=== PATIENT | female | born 1985 | race Caucasian/White ===

== ENCOUNTER → 2018-07-16 11:56 | Outpatient (CLI) | payer OTHER, SELFPAY ==
[2018-07-19 18:24] LABS: Fecal Immunochemical Test NOT DETECTED
== END ==
PROVIDERS: PCP Family Medicine; Visit Provider Family Medicine
DX: K92.1 Melena (principal)
CPT/HCPCS: 82274

== ENCOUNTER → 2018-07-18 13:04 | Outpatient (CLI) | payer OTHER, SELFPAY ==
[2018-07-18 13:58] LABS: Add Manual Diff / Slide Review NO; Basophils Percent Auto 0.3 % (0-2); Eosinophils Percent Auto 0.2 % (2-4); Hematocrit 33.5 % (36-46); Hemoglobin 11.4 g/dL (12.0-16.0); Lymphocytes Percent Auto 18.5 % (25-40); Mean Corpuscular HGB Conc 34.1 % (30-36); Mean Corpuscular Hemoglobin 30.8 PG (26-34); Mean Corpuscular Volume 90.3 fL (80-100); Monocytes Percent Auto 7.8 % (3-14); Neutrophils Absolute Auto 4200 /uL (3000-5900); Neutrophils Percent Auto 73.2 % (50-75); Platelet Count 243 X10^3/uL (150-400); Red Blood Cell Count 3.71 X10^6/uL (4.0-5.2); Red Cell Distribution Width 13.9 % (11.6-14.8); White Blood Cell Count 5.8 X10^3/uL (4.5-11.0)
[2018-07-18 14:34] LABS: HEMOLYSIS < 15 (0-50); Iron 157 ug/dL (37-170)
[2018-07-18 14:45] LABS: Percent Iron Saturation 58 % (15-50); Total Iron Binding Capacity 269 ug/dL (265-497); Transferrin 229 mg/dL (206-381)
== END ==
PROVIDERS: PCP Family Medicine; Visit Provider Family Medicine
DX: D64.9 Anemia, unspecified (principal)
CPT/HCPCS: 36415; 83540; 83550; 85025

== ENCOUNTER → 2018-07-19 09:49 | Outpatient (CLI) | payer OTHER, SELFPAY ==
[2018-07-19 10:40] LABS: Occult Blood 1 Negative (Negative)
== END ==
PROVIDERS: PCP Family Medicine; Visit Provider Family Medicine
DX: K92.1 Melena (principal)
CPT/HCPCS: 82270; 86677

== ENCOUNTER → 2018-07-22 12:15 | Outpatient (CLI) | payer OTHER, SELFPAY ==
[2018-07-22 13:51] LABS: Vitamin B12 390 pg/mL (239-931)
== END ==
PROVIDERS: PCP Family Medicine; Visit Provider Family Medicine
DX: D64.9 Anemia, unspecified (principal)
CPT/HCPCS: 82607

== ENCOUNTER → 2018-08-11 14:00 | Outpatient (CLI) | payer OTHER, SELFPAY | PROVIDERS: PCP Family Medicine | DX: Z23 Encounter for immunization (principal) | CPT/HCPCS: 90471; 90686 ==

== ENCOUNTER → 2019-03-31 16:23 | Outpatient (CLI) | payer OTHER, SELFPAY ==
--- NOTE | 2019-03-31 16:26 | DI.US.S_ITS ---
PROCEDURE: US EXTREMITY NONVASC LOWER LT INDICATIONS: Lump behind L knee TECHNIQUE: Real-time scanning was performed of the left popliteal fossa and posterior aspect of the left eye, with image documentation. COMPARISON: None. FINDINGS: There is no discrete mass in the area palpated by the patient. Soft tissue edema is noted in this region. IMPRESSION: Soft tissue edema without underlying palpable mass is palpated by the patient. Dictated by: Desiree Ng M.D. on 03/31/2019 at 17:42 Approved by: Desiree Ng M.D. on 03/31/2019 at 17:42
--- NOTE | 2019-03-31 16:26 | DI.RAD.S_ITS ---
PROCEDURE: XR KNEE LT 3V INDICATIONS: Left knee pain TECHNIQUE: 3 views of the knee were acquired. COMPARISON: None. FINDINGS: Bones: No fractures or dislocations. No suspicious bony lesions. Soft tissues: No joint effusion. No suspicious soft tissue calcifications. IMPRESSION: No definite radiographic abnormality. If pain persists, consider cross sectional imaging such as CT or MRI for further assessment. If there is clinical concern for Rodriguez's cyst or soft tissue mass, consider ultrasound. Dictated by: Devonte CHARLES Interpreted: Stephanie Hammond MD on 03/31/2019 at 16:54 Approved by: Stephanie Hammond M.D. on 04/03/2019 at 17:34
== END ==
PROVIDERS: PCP Family Medicine; Visit Provider Registered Nurse
DX: M25.562 Pain in left knee (principal); R22.42 Localized swelling, mass and lump, left lower limb
CPT/HCPCS: 73562; 76882

== ENCOUNTER → 2019-08-29 10:14 | Outpatient (CLI) | payer OTHER, SELFPAY | PROVIDERS: PCP Family Medicine | DX: Z23 Encounter for immunization (principal) | CPT/HCPCS: 90471; 90686 ==

== ENCOUNTER 2020-01-20 07:44 | Emergency (ER) | payer OTHER, SELFPAY ==
--- NOTE | 2020-01-20 07:56 | DI.RAD.S_ITS ---
PROCEDURE: XR HIP W PEL IF DONE RT 2V INDICATIONS: fall with hip pain TECHNIQUE: 2 views of the hip were acquired. COMPARISON: None. FINDINGS: Bones: No displaced fractures or dislocations. No suspicious bony lesions. The visualized pelvic ring appears intact. Soft tissues: No suspicious soft tissue calcifications or masses. An intrauterine contraceptive device is identified within the pelvis. Imaged bowel loops are nondilated. IMPRESSION: No acute fractures of the right hip are evident. Dictated by: Mark Wood M.D. on 01/20/2020 at 7:37 Approved by: Mark Wood M.D. on 01/20/2020 at 7:38
--- NOTE | 2020-01-20 07:56 | DI.RAD.S_ITS ---
PROCEDURE: XR KNEE RT 3V INDICATIONS: fall with pain TECHNIQUE: 3 views of the knee were acquired. COMPARISON: [facility], CR, XR KNEE LT 3V, 03/31/2019, 16:41. FINDINGS: Bones: No fractures or dislocations. No suspicious bony lesions. Soft tissues: There is a small joint effusion. No suspicious soft tissue calcifications. Prepatellar soft tissue edema is present. No radiopaque foreign bodies are evident. IMPRESSION: 1. No acute right knee fractures. 2. Probable prepatellar soft tissue injury. Dictated by: Mark Wood M.D. on 01/20/2020 at 7:39 Approved by: Mark Wood M.D. on 01/20/2020 at 7:41
[2020-01-20 08:07] VITALS: BP 143/92; PULSE 70; RESP 14; TEMP 36.6; O2SAT 97
[2020-01-20] MEDS: LIDOCAINE 1% W/EPI 1 ML SUBCUT (08:30)
[2020-01-20] MEDS: TET,DIPH,PERTUSS(ACELL),VAC/PF 0.5 ML SYRINGE IM (08:33)
--- NOTE | 2020-01-20 08:36 | ED_ITS ---
HPI - Extremity Injury (Lower) General Chief Complaint: Extremity Injury, Lower Stated Complaint: suspected dislocated hip and hurt knee Time Seen by Provider: 01/20/20 07:45 Source: patient and family Mode of arrival: Ambulatory Limitations: no limitations History of Present Illness HPI Narrative: 34-year-old female nonsmoker with noncontributory medical history presents with a chief complaint of right hip and right knee pain after a fall last night. She states she was rollerblading when she tried to jump and tripped and fell forward, landing directly on her knee. In the immediate aftermath she had significant pain in her right hip and had difficulty with ambulation. She suffered a laceration on her right kneecap which she washed out. She is unsure when her tetanus is. Her pain is worse when she moves and improves with rest MD complaint: hip injury and knee injury Onset (ago): hour(s) Type of Injury: blunt Place: street/outdoors Severity: moderate Relieving factors: rest Exacerbating factors: weight bearing and movement Context: fall and direct blow Other symptoms: none Related Data Home Medications Medication Instructions Recorded Confirmed multivitamin [Multiple Vitamins] 1 tab PO QDAY #0 07/23/17 09/27/19 cholecalciferol (vitamin D3) 1,000 unit PO QDAY #0 10/30/17 09/27/19 [Vitamin D3] Previous Rx's Medication Instructions Recorded propranolol 10 mg tablet 10 mg PO TID PRN #90 tab 09/27/19 cephalexin [Keflex] 500 mg PO QID 7 Days #28 cap 01/20/20 Allergies Allergy/AdvReac Type Severity Reaction Status Date / Time No Known Allergies Allergy Uncoded 09/27/19 11:27 Review of Systems Constitutional Constitutional: Denies chills, Denies fatigue, Denies fever(s), Denies frequent falls, Denies lethargy and Denies weakness Eyes Eyes: Denies change in vision, Denies eye discharge, Denies irritation and Denies loss of vision ENT Ears, Nose, Mouth, and Throat: Denies change in voice, Denies dizziness, Denies neck pain, Denies sore throat and Denies throat swelling Cardiovascular Cardiovascular: Denies chest pain, Denies irregular heart rhythm, Denies lightheadedness, Denies palpitations, Denies dyspnea, Denies dyspnea on exertion and Denies orthopnea Respiratory Respiratory: Denies cough, Denies dyspnea, Denies dyspnea on exertion and Denies wheezing Gastrointestinal Gastrointestinal: Denies abdominal pain, Denies change in bowel habits, Denies diarrhea, Denies nausea and Denies vomiting Genitourinary Genitourinary: Denies hematuria, Denies flank pain, Denies urinary incontinence and Denies urinary urgency Musculoskeletal Musculoskeletal: Denies back pain, Reports limited range of motion, Denies muscle weakness, Denies neck pain, Denies numbness and Denies tingling Integumentary/Breasts Skin/Breast: Denies pruritus, Denies erythema, Denies rash and Reports wounds Neurologic Neurologic: Denies behavioral changes, Denies confusion, Denies dizziness, Denies frequent falls, Denies loss of vision, Denies numbness, Denies tingling and Denies weakness Psychiatric Psychiatric: Denies anxiety, Denies behavioral changes, Denies confusion, Denies depression, Denies homicidal ideation and Denies suicidal ideation Endocrine Endocrine: Denies fatigue, Denies flushing and Denies palpitations Hematologic/Lymphatic Hematologic/Lymphatic: Denies easy bruising Allergic/Immunologic Allergic/Immunologic: Denies urticaria, Denies throat swelling and Denies wheezing Patient History Medical History Ankle pain (Chronic 2008) Anxiety and depression (Acute) Brachial artery occlusion, 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 Grandmother Diabetes mellitus Sister Mental health problem Depression Anxiety Social History Smoking Status: Never smoker alcohol intake: current Smoking Status: Never smoker Substance Use Type: does not use Exam Narrative Exam Narrative: GENERAL: [34] year old patient appears stated age. Well- nourished, well-developed patient, in mild distress. GCS 15 HEAD: Atraumatic. Normocephalic. EYES: Pupils equal round and reactive. Extraocular motions intact. No scleral icterus. No injection or drainage. ENT: Nose without bleeding, purulent drainage. Throat without erythema, tonsillar hypertrophy or exudate. Airway patent. NECK: Trachea midline. Non tender CARDIOVASCULAR: Regular rate and rhythm without murmurs, gallops, or rubs. RESPIRATORY: Clear to auscultation. Breath sounds equal bilaterally. No wheezes, rales, or rhonchi. GASTROINTESTINAL: Abdomen soft, non-tender, nondistended. EXTREMITIES: Full but painful range of motion at right hip and knee. No shortening or internal rotation. No obvious effusion, crepitance or deformity. 3 cm deep full-thickness laceration across patella with minimal bleeding and irregular borders BACK: Nontender without deformity or crepitance. No flank tenderness. NEURO: AOx3. SKIN: No rash or erythema of visible areas Initial Vital Signs Initial Vital Signs: Vital Signs Temperature 97.8 F 01/20/20 08:07 Pulse Rate 70 01/20/20 08:07 Respiratory Rate 14 01/20/20 08:07 Blood Pressure 143/92 H 01/20/20 08:07 Pulse Oximetry 97 01/20/20 08:07 Procedures Laceration Repair Laceration 1: Side (If applicable): right Size (cm): 3 Description: irregular Depth: involves muscle layer Local Anesthetic: lidocaine 1% and with epi Amount of anesthesia used (mL): 4 Pre-repair: wound explored and irrigated extensively Skin layer closed with: nylon Size (cm): 4-0 Number of sutures: 4 Technique: simple, interrupted Subcutaneous layer closed with: vicryl Size: 4-0 Number of sutures: 1 Course Orders Ordered: Discontinued Medications Diphtheria/Tetanus/Acell Pertussis (Adacel) 0.5 ml IM .ONCE ONE Stop: 01/20/20 08:30 Last Admin: 01/20/20 08:33 Dose: 0.5 ml Documented by: MEISENRamone Lidocaine/Epinephrine (Xylocaine 1% W/Epi) 1 ml SUBCUT NOW ONE Stop: 01/20/20 07:57 Last Admin: 01/20/20 08:30 Dose: 1 ml Documented by: MEISENB Vital Signs Vital signs: Vital Signs - 8 hr 01/20/20 08:07 Temperature 97.8 F Pulse Rate 70 Respiratory Rate 14 Blood Pressure 143/92 H Pulse Oximetry 97 MDM - Extremity Injury (Lower) Imaging Data Extremity x-ray #1: Radiologist's Impression: [address] [address] XRay Report Signed Patient: Yecenia Arcos EMR#: [id number] : 1985Acct:[id number] Age/Sex: 34 / FDate of Service: 01/20/20 Loc: ED Accession Number: [id number] Procedure: XR hip w pel if done RT 2V Ordering Provider: Ishmael Rivera D.O. PROCEDURE: XR HIP W PEL IF DONE RT 2V INDICATIONS: fall with hip pain TECHNIQUE: 2 views of the hip were acquired. COMPARISON: None. FINDINGS: Bones: No displaced fractures or dislocations. No suspicious bony lesions. The visualized pelvic ring appears intact. Soft tissues: No suspicious soft tissue calcifications or masses. An intrauterine contraceptive device is identified within the pelvis. Imaged bowel loops are nondilated. IMPRESSION: No acute fractures of the right hip are evident. Dictated by: Mark Wood M.D. on 01/20/2020 at 7:37 Approved by: Mark Wood M.D. on 01/20/2020 at 7:[address] [address] XRay Report Signed Patient: Yecenia Arcos EMR#: [id number] : 1985Acct:[id number] Age/Sex: 34 / FDate of Service: 01/20/20 Loc: ED Accession Number: [id number] Procedure: XR knee RT 3V Ordering Provider: Ishmael Rivera D.O. PROCEDURE: XR KNEE RT 3V INDICATIONS: fall with pain TECHNIQUE: 3 views of the knee were acquired. [facility], 16:41. FINDINGS: Bones: No fractures or dislocations. No suspicious bony lesions. Soft tissues: There is a small joint effusion. No suspicious soft tissue calcifications. Prepatellar soft tissue edema is present. No radiopaque foreign bodies are evident. IMPRESSION: 1. No acute right knee fractures. 2. Probable prepatellar soft tissue injury. Dictated by: Mark Wood M.D. on 01/20/2020 at 7:39 Approved by: Mark Wood M.D. on 01/20/2020 at 7:41 Discharge Plan Departure Patient Disposition: Home Clinical Impression: Knee laceration Qualifiers: Encounter type: initial encounter Laterality: right Qualified Code(s): S81.011A - Laceration without foreign body, right knee, initial encounter Knee sprain Qualifiers: Encounter type: initial encounter Involved ligament of knee: unspecified ligament Laterality: right Qualified Code(s): S83.91XA - Sprain of unspecified site of right knee, initial encounter Hip sprain Qualifiers: Encounter type: initial encounter Laterality: right Qualified Code(s): S73.101A - Unspecified sprain of right hip, initial encounter Discharge Date/Time: 01/20/20 09:01 Instructions: DI for Laceration Repair, DI for Knee Pain Activity Restrictions/Additional Instructions: Please keep the wound clean and dry to the best of your ability. Please monitor for signs of infection such as redness to the skin or increasing pain. Have the sutures removed by your doctor in about 7 days. If you are unable to get into your doctor, we would be happy to remove the sutures in that same timeframe. *You have been diagnosed with [right knee laceration, contusion, sprain and hip sprain] *What to do: *Take medications as directed *Return to ER if you should have any new, worsening or concerning symptoms Prescriptions: New cephalexin [Keflex] 500 mg capsule 500 mg PO QID 7 Days Qty: 28 RF: 0 No Action propranolol 10 mg tablet 10 mg PO TID PRN (Reason: anxiety) Qty: 90 RF: 0 multivitamin [Multiple Vitamins] 1 EACH tablet 1 tab PO QDAY Qty: 0 RF: 0 cholecalciferol (vitamin D3) [Vitamin D3] 1,000 UNIT tablet 1,000 unit PO QDAY Qty: 0 RF: 0 Referrals: Melvi Munoz MD [Primary Care Provider] -
--- NOTE | 2020-01-20 08:44 | PC.NURSE ---
wound to right knee/ dr. ramos/ clean and sutures done. telfa dressing and jr wrap for compression
== END 2020-01-20 09:01 | disposition home or self-care (01) ==
PROVIDERS: Emergency Provider Emergency Medicine; PCP Family Medicine
DX: S81.011A Laceration without foreign body, right knee, initial encounter (principal); S83.91XA Sprain of unspecified site of right knee, initial encounter; S73.101A Unspecified sprain of right hip, initial encounter; W18.11XA Fall from or off toilet without subsequent striking against object, initial encounter; Y93.39 Activity, other involving climbing, rappelling and jumping off; Z23 Encounter for immunization
CPT/HCPCS: 12002; 73502; 73562; 90471; 96372; 99283; 99284; 90715

== ENCOUNTER → 2020-06-12 12:27 | Outpatient (CLI) | payer OTHER, SELFPAY ==
[2020-06-12 13:15] LABS: Add Manual Diff / Slide Review NO; Basophils Absolute Auto 0 /uL (0-100); Basophils Percent Auto 0.3 % (0-2); Eosinophils Absolute Auto 0 /uL (0-450); Eosinophils Percent Auto 0.1 % (2-4); Hematocrit 35.1 % (36-46); Hemoglobin 11.5 g/dL (12.0-16.0); Lymphocytes Absolute Auto 900 /uL (1100-4500); Lymphocytes Percent Auto 13.1 % (25-40); Mean Corpuscular HGB Conc 32.8 % (30-36); Mean Corpuscular Hemoglobin 29.9 PG (26-34); Monocytes Absolute Auto 600 /uL (0-900); Monocytes Percent Auto 7.7 % (3-14); Neutrophils Absolute Auto 5700 /uL (1500-7000); Neutrophils Percent Auto 78.8 % (50-75); Platelet Count 263 X10^3/uL (150-400); Red Blood Cell Count 3.85 X10^6/uL (4.0-5.2); Red Cell Distribution Width 13.4 % (11.6-14.8); White Blood Cell Count 7.2 X10^3/uL (4.5-11.0)
[2020-06-12 14:07] LABS: Alanine Aminotransferase 24 IU/L (<35); Albumin 4.4 g/dL (3.5-5.0); Albumin Globulin Ratio 1.8 (1.0-2.8); Alkaline Phosphatase 67 U/L (38-126); Aspartate Aminotransferase 36 IU/L (14-36); BUN Creatinine Ratio 17.5 (6-22); Bilirubin Total 0.3 mg/dL (0.2-1.3); Blood Urea Nitrogen 14 mg/dL (7-17); Calcium 9.7 mg/dL (8.4-10.2); Carbon Dioxide 29 mmol/L (22-32); Chloride 102 mmol/L (98-107); Estimated Glomerular Filt Rate > 60.0 mL/min (>60); Globulin 2.4 g/dL (1.7-4.1); Glucose 85 mg/dL (70-100); HEMOLYSIS < 15 (0-50); Potassium 4.1 mmol/L (3.4-5.1); Sodium 137 mmol/L (137-145); Total Protein 6.8 g/dL (6.3-8.2)
[2020-06-12 14:26] LABS: TSH w/ Reflex to FT4 1.45 uIU/mL (0.47-4.68)
[2020-06-12 14:58] LABS: Hemoglobin A1C% w Est Avg Glu 4.6 % (4.0-6.0)
[2020-06-12 16:38] LABS: HEMOLYSIS < 15 (0-50); Iron 83 ug/dL (37-170)
[2020-06-12 16:49] LABS: Percent Iron Saturation 28 % (15-50); Total Iron Binding Capacity 299 ug/dL (265-497); Transferrin 250 mg/dL (206-381)
== END ==
PROVIDERS: PCP Family Medicine; Referring Provider Family Medicine; Visit Provider Family Medicine
DX: R42 Dizziness and giddiness (principal); D64.9 Anemia, unspecified
CPT/HCPCS: 36415; 80053; 83036; 83540; 83550; 84443; 85025

== ENCOUNTER → 2020-06-18 15:26 | Outpatient (CLI) | payer OTHER, SELFPAY ==
[2020-06-19 23:18] LABS: COVID19 Sendout Not Detected (Not Detect)
== END ==
PROVIDERS: PCP Family Medicine; Visit Provider Physician Assistant
DX: R07.89 Other chest pain (principal); R42 Dizziness and giddiness
CPT/HCPCS: 87635

== ENCOUNTER → 2020-06-19 08:50 | Outpatient (CLI) | payer OTHER, SELFPAY ==
--- NOTE | 2020-07-09 07:52 | PM.CARDMON.1 ---
[employer] Report Referral & Results Date Patient Seen: 06/19/20 Requesting provider: Melvi Munoz Indication: Dizziness Duration of monitoring (days): 7 Diary information: There were 10 patient triggered events and 7 patient diary entries. All 17 of these events were associated with sinus rhythm only (within 45 seconds). Data: Minimum heart rate identified was 44 beats per minute at 06:35 on 06/22/2020 Maximum heart rate was 185 beats per minute at 08:45 on 06/25/2020 No PACs were identified Rare, less than 1% of identified beats, PVCs were identified Impression: Normal equipment monitor phototypesetting No significant dysrhythmia noted on this study.
== END ==
PROVIDERS: PCP Family Medicine; Referring Provider Family Medicine; Visit Provider Family Medicine
DX: R42 Dizziness and giddiness (principal); R00.2 Palpitations
CPT/HCPCS: 0296T; 0298T

== ENCOUNTER → 2020-08-30 12:00 | Outpatient (CLI) | payer OTHER, SELFPAY | PROVIDERS: PCP Family Medicine; Referring Provider Internal Medicine; Visit Provider Internal Medicine | DX: Z23 Encounter for immunization (principal) | CPT/HCPCS: 90471; 90686 ==

== ENCOUNTER → 2020-12-04 08:59 | Outpatient (CLI) | payer OTHER, SELFPAY ==
[2020-12-04] MEDS: COVID-19 VACC(MODERNA-1)/PF 100 MCG/0.5 ML VIAL IM (09:03)
== END ==
PROVIDERS: PCP Family Medicine; Visit Provider Internal Medicine
DX: Z23 Encounter for immunization (principal)
CPT/HCPCS: 0011A; 91301

== ENCOUNTER → 2020-12-27 08:32 | Outpatient (CLI) | payer OTHER, SELFPAY | PROVIDERS: PCP Family Medicine; Referring Provider Family Medicine; Visit Provider Family Medicine | DX: R07.9 Chest pain, unspecified (principal) | CPT/HCPCS: 93005 ==

== ENCOUNTER → 2021-01-01 09:01 | Outpatient (CLI) | payer OTHER, SELFPAY ==
[2021-01-01] MEDS: COVID-19 VACC #2, MRNA(MOD) 100 MCG/0.5 ML VIAL IM (09:05)
== END ==
PROVIDERS: PCP Family Medicine; Visit Provider Internal Medicine
DX: Z23 Encounter for immunization (principal)
CPT/HCPCS: 0012A; 91301

== ENCOUNTER → 2021-04-11 13:46 | Outpatient (CLI) | payer OTHER, SELFPAY ==
[2021-04-15 11:50] LABS: Chlamydia trachomatis Negative (Negative); Mycoplasma genitalium Negative (Negative); Neisseria gonorrhoeae Negative (Negative)
== END ==
PROVIDERS: PCP Family Medicine; Visit Provider Family Medicine
DX: Z11.3 Encounter for screening for infections with a predominantly sexual mode of transmission (principal)
CPT/HCPCS: 87491; 87563; 87591